=== PATIENT | male | born 2000 | race Caucasian/White ===

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

== ENCOUNTER 2020-03-20 13:43 | Emergency (ER) | payer OTHER ==
[~2020-03-20] VITALS: Ht 187.9 cm; Wt 81.6 kg
[~2020-03-20 13:43] MED LIST changes: +CLARITIN10 MG PO; +FLONASE ALLERG9.9 ML NAS; +PREDNISONE10 MG PO; +PROAIR HFA8.5 GM INH
[2020-03-20 13:55] VITALS: BP 119/72
[2020-03-20] MEDS ORDERED: NYST SUSP PO (15:15)
== END 2020-03-20 15:21 | disposition home or self-care (01) ==
LOC: ED 13:43
DX: B37.0 Candidal stomatitis (principal); B37.81 Candidal esophagitis; L03.012 Cellulitis of left finger; Z88.5 Allergy status to narcotic agent

== ENCOUNTER → 2021-01-30 | Outpatient (CLI) | payer OTHER ==
[~2021-01-30] MED LIST changes: +NYST SUSP PO
== END | disposition home or self-care (01) ==
LOC: RESCLI 00:25
PROVIDERS: ATTEND Internal Medicine
DX: Z23 Encounter for immunization (principal); J30.9 Allergic rhinitis, unspecified; A08.4 Viral intestinal infection, unspecified; J30.2 Other seasonal allergic rhinitis; F12.90 Cannabis use, unspecified, uncomplicated; Z79.899 Other long term (current) drug therapy; Z82.49 Family history of ischemic heart disease and other diseases of the circulatory system

== ENCOUNTER → 2021-03-21 | Outpatient (CLI) | payer OTHER | END | disposition home or self-care (01) | LOC: CT 10:00 | PROVIDERS: ATTEND Family Medicine | DX: K92.1 Melena (principal) ==

== ENCOUNTER → 2022-03-05 | Outpatient (CLI) | payer OTHER | END | disposition home or self-care (01) | LOC: US 11:00 | PROVIDERS: ATTEND Family Medicine | DX: R10.9 Unspecified abdominal pain (principal) ==